=== PATIENT | female | born 1995 | race Caucasian/White ===

== ENCOUNTER 2018-03-24 07:57 | Day surgery (SDC) | payer OTHER ==
[~2018-03-24 07:57] MED LIST: OXYMETAZOLINE HCL 0.05% 30ML NAS ONE; Ringers Lactate 1,000 ML IV ONE
[2018-03-24] MEDS ORDERED: LIDOCAINE 2% MPF 5 ML VIAL ONE (08:13)
[2018-03-24] MEDS ORDERED: FENTANYL CITR 100 MCG/2 ML ONE ×2 (08:13→09:32)
[2018-03-24] MEDS ORDERED: MIDAZOLAM HCL 2 MG/2 ML INJ ONE (08:13)
[2018-03-24] MEDS ORDERED: PROPOFOL 200 MG/20 ML VIAL IV ONE (08:13)
[2018-03-24] MEDS ORDERED: DEXAMETHASONE 10 MG/ML VIAL ONE (08:13)
[2018-03-24] MEDS ORDERED: ONDANSETRON HCL 40 MG/20 ML VIAL ONE (08:14)
[2018-03-24] MEDS ORDERED: ROCURONIUM 50 MG/5 ML VIAL IV ONE (08:14)
[2018-03-24] MEDS ORDERED: OXYMETAZOLINE HCL 0.05% 30ML NAS ONE (08:18)
[2018-03-24] MEDS ORDERED: LIDOCAINE 1% W/EPI 1:100,000 MDV 50 ML VIAL ONE (08:19)
[2018-03-24] MEDS ORDERED: NA CHLORIDE 0.9% 250 ML ONE (08:19)
[2018-03-24] MEDS ORDERED: NA CHLORIDE 0.9% 1,000 ML ONE (09:34)
--- OUTSIDE RECORDS SUMMARY | 2018-03-24 09:49 | XMS REPORT ---
:1995 Author Organization eClinicalWorks Care Team Providers Name Role Phone Curt Bautista Provider Role Unavailable Allergies No Known Allergies Problems Problem Type Condition Code Onset Dates Condition Status Assessment Elevated BP without diagnosis of R03.0 Active hypertension Assessment Mixed hyperlipidemia E78.2 Active Assessment Adult BMI 38.0-38.9 kg/sq m Z68.38 Active Assessment Weight gain R63.5 Active Problem Adult BMI 38.0-38.9 kg/sq m Z68.38 Active Problem Adult BMI 36.0-36.9 kg/sq m Z68.36 Active Problem Mixed hyperlipidemia E78.2 Active Problem Elevated BP without diagnosis of R03.0 Active hypertension Problem Acne, unspecified acne type L70.9 Active Problem Weight gain R63.5 Active Problem Menorrhagia with regular cycle N92.0 Active Medications Medication Code Code Instructions Start End Status Dosage System Date Date [facility]xton [facility] 89828811017 1.2-3.75 % Active 1 application Externally Once to affected a day area Ortho [facility] [id number] 0.35 MG Orally January 19, Active 1 tablet Micronor Once a day 2017 Results No Known Results Summary Purpose eClinicalWorks Submission
--- OUTSIDE RECORDS SUMMARY | 2018-03-24 09:49 | XMS REPORT ---
:1995 Author Organization eClinicalWorks Care Team Providers Name Role Phone Vangie Leach Provider Role Unavailable Allergies, Adverse Reactions, Alerts Substance Reaction Event Type tetracycline Info Not Available Drug Allergy penicillin Info Not Available Drug Allergy Problems Problem Type Condition Code Onset Dates Condition Status Assessment Acne, unspecified acne type L70.9 Active Assessment Encounter for surveillance of Z30.41 Active contraceptive pills Assessment Elevated BP without diagnosis of R03.0 Active hypertension Problem Adult BMI 38.0-38.9 kg/sq m Z68.38 Active Problem Adult BMI 36.0-36.9 kg/sq m Z68.36 Active Problem Weight gain R63.5 Active Problem Acne, unspecified acne type L70.9 Active Assessment Adult BMI 38.0-38.9 kg/sq m Z68.38 Active Problem Menorrhagia with regular cycle N92.0 Active Problem Elevated BP without diagnosis of R03.0 Active hypertension Medications Medication Code Code Instructions Start End Status Dosage System Date Date Ortho [facility] [id number] 0.35 MG Orally January 19, Active 1 tablet Micronor Once a day [address] [facility] [id number] 1.2-3.75 % Active 1 application Externally Once to affected a day area [facility] [id number] 1.5-30 MG-MCG Inactive 1 tablet Orally Once a day Results No Known Results Summary Purpose eClinicalWorks Submission
--- OUTSIDE RECORDS SUMMARY | 2018-03-24 09:49 | XMS REPORT ---
:1995 Author Organization eClinicalWorks Care Team Providers Name Role Phone Burak Bautistah Provider Role Unavailable Allergies, Adverse Reactions, Alerts Substance Reaction Event Type tetracycline Info Not Available Drug Allergy penicillin Info Not Available Drug Allergy Problems Problem Type Condition Code Onset Dates Condition Status Assessment Adult BMI 38.0-38.9 kg/sq m Z68.38 Active Assessment Elevated BP without diagnosis of R03.0 Active hypertension Assessment Weight gain R63.5 Active Problem Adult BMI 38.0-38.9 kg/sq m Z68.38 Active Problem Adult BMI 36.0-36.9 kg/sq m Z68.36 Active Problem Weight gain R63.5 Active Problem Acne, unspecified acne type L70.9 Active Assessment Encounter for preventative adult Z00.01 Active health care exam with abnormal findings Problem Menorrhagia with regular cycle N92.0 Active Problem Elevated BP without diagnosis of R03.0 Active hypertension Medications Medication Code Code Instructions Start End Status Dosage System Date Date [facility] [id number] 1.5-30 MG-MCG Active 1 tablet Orally Once a day Onexton [facility] [id number] 1.2-3.75 % Active 1 application Externally Once to affected a day area Results No Known Results Summary Purpose eClinicalWorks Submission
--- NOTE | 2018-03-24 10:47 | P.BOP ---
Preoperative diagnosis: recurrent sinusitis, turbinate hypertrophy Postoperative diagnosis: same Primary procedure: NE with ballon dilation B frontal, sphenoid, maxillary sinuses Estimated blood loss: 10ml Specimen: none Anesthesia: General Complications: None Implants: Xeroform Fluids & blood products: 400ml crystalloid Transferred to: Recovery Room Condition: Good
[2018-03-24] MEDS ORDERED: TRAMADOL HCL 50 MG TAB PO ONE (11:00)
[2018-03-24] MEDS ORDERED: TRAMADOL HCL 50 MG TAB ONE (11:02)
[2018-03-24 13:28] LABS: Specific Gravity <= 1.005 (1.005-1.030)
--- NOTE | 2018-03-27 14:52 | OP ---
Date of Procedure: 03/24/2018 Surgeon: Shima Hill MD Preoperative Diagnosis: Recurrent acute sinusitis, turbinate hypertrophy. Postoperative Diagnosis: Recurrent acute sinusitis, turbinate hypertrophy. Procedure: Nasal endoscopy with bilateral frontal, sphenoid and maxillary balloon dilation and bilateral inferior turbinate resection by submucous removal of tissue. Indication For Procedure: Kelley is a 22-year-old who had recurrent sinusitis treated in [facility] where she is a college student. Her records from her treating ENT were obtained and reviewed. I agreed with his recommendation for balloon dilation, inferior turbinate resection. The risks, benefits, and alternatives were discussed with the patient and family who agreed to proceed. Description Of Procedure: The patient was brought to the operating room. She was placed under general anesthesia via oral endotracheal tube. The head of bed was turned 90 degrees. No trimming of the nasal hair was necessary. The nasal cavity was packed with Afrin pledgets. After removal, a 0-degree endoscope was used to perform a nasal endoscopy. The turbinates were noted to be large despite decongestion. The sinus balloon dilation device was prepared according to home staging specialist's instruction and under endoscopic guidance, the device was passed around the uncinate to the frontal recess; location was confirmed by vivid illumination of the forehead and the balloon was deployed. After several seconds the balloon was deflated and the device was carefully withdrawn. Afrin-soaked pledgets were applied to the middle meatus and a similar procedure was performed on the contralateral side. After successful dilation of the frontal sinuses, the device was reconfigured to use on the sphenoid sinuses. The device was passed under endoscopic guidance into the sphenoid ethmoid recess and carefully advanced into the left sphenoid os. The balloon was deployed and then deflated. The device was carefully withdrawn and similar procedure was performed with contralateral side. The device was then reconfigured to 135 degree angle for use in the maxillary sinus. Under endoscopic guidance, the device was advanced into the middle meatus and carefully placed around the uncinate process without difficulty and into the middle meatus and the maxillary infundibulum. The device was then inflated and then deflated and carefully removed. A similar procedure was performed on the contralateral site. Preparations were then made for the inferior turbinate reduction. A sickle knife was used to make an incision in the head of the bilateral middle turbinate. A William elevator was used to develop a submucosal pocket in the tissue. The microdebrider with the inferior turbinate blade was then used for submucous resection of the tissues. After adequate resection, the nose was packed with Afrin-soaked pledgets to aid in stasis. The pledgets were then removed. There was minimal bleeding. The patient was then returned to care of Anesthesia for awakening, extubation in the operating room, which proceeded without difficulty. DENNIS Voice ID: [id number] Report ID: [id number] KAYLEEN
== END 2018-03-24 11:35 | disposition home or self-care (01) ==
LOC: OR 07:57
PROVIDERS: ATTEND Otolaryngology
PROC: 09QW8ZZ Repair Right Sphenoid Sinus, Via Natural or Artificial Opening Endoscopic (ICD-10-PCS; 2018-03-24)
PROC: 09QX8ZZ Repair Left Sphenoid Sinus, Via Natural or Artificial Opening Endoscopic (ICD-10-PCS; 2018-03-24)
PROC: 09QQ8ZZ Repair Right Maxillary Sinus, Via Natural or Artificial Opening Endoscopic (ICD-10-PCS; 2018-03-24)
PROC: 09QR8ZZ Repair Left Maxillary Sinus, Via Natural or Artificial Opening Endoscopic (ICD-10-PCS; 2018-03-24)
PROC: 09QS8ZZ Repair Right Frontal Sinus, Via Natural or Artificial Opening Endoscopic (ICD-10-PCS; 2018-03-24)
PROC: 09BL8ZZ Excision of Nasal Turbinate, Via Natural or Artificial Opening Endoscopic (ICD-10-PCS; 2018-03-24)
PROC: 09QT8ZZ Repair Left Frontal Sinus, Via Natural or Artificial Opening Endoscopic (ICD-10-PCS; principal; 2018-03-24 09:00)
DX: J01.91 Acute recurrent sinusitis, unspecified (principal); J00 Acute nasopharyngitis [common cold]; J30.9 Allergic rhinitis, unspecified; Z88.1 Allergy status to other antibiotic agents; Z88.0 Allergy status to penicillin; J34.3 Hypertrophy of nasal turbinates
CPT/HCPCS: 81025; J1100; J2250; J2405; J3010; J7030